=== PATIENT | male | born 1945 | race Caucasian/White ===

== ENCOUNTER 2017-01-05 08:43 | Day surgery (SDC) | payer MEDICARE, OTHER ==
[~2017-01-05 08:43] MED LIST: ASPIRIN81 M1 PO; FLOMAX0.4 M1 PO
[2017-01-05] MEDS ORDERED: CRESTOR10 M1 PO (09:41)
[2017-01-05] MEDS ORDERED: HYDROCODON-ACE1 EA16 PO (09:43)
[2017-01-05] MEDS ORDERED: OSTEO BI-FLEX1 EAC5 PO (09:43)
== END 2017-01-05 15:30 ==
LOC: SRG 08:43 → SHSB 08:44 → ORE 10:53 → PACU 11:47 → SHSB 13:15
PROC: 0TF7XZZ Fragmentation in Left Ureter, External Approach (ICD-10-PCS; principal; 2017-01-05)
DX: N20.1 Calculus of ureter (principal); M19.90 Unspecified osteoarthritis, unspecified site; E78.5 Hyperlipidemia, unspecified; E74.39 Other disorders of intestinal carbohydrate absorption; N40.0 Benign prostatic hyperplasia without lower urinary tract symptoms; Z79.899 Other long term (current) drug therapy; Z98.890 Other specified postprocedural states; Z98.1 Arthrodesis status; Z87.891 Personal history of nicotine dependence; Z79.891 Long term (current) use of opiate analgesic
CPT/HCPCS: J1170; J1956; J3010